=== PATIENT | male | born 1970 | race Caucasian/White ===

== ENCOUNTER 2017-11-24 09:03 | Emergency (ER) | payer OTHER ==
[2017-11-24] MEDS: PERCOCET 5MG/325MG TAB PO (10:15)
[2017-11-24] MEDS: BACLOFEN 10 MG TAB PO (10:15)
== END 2017-11-24 13:17 | disposition home or self-care (01) ==
LOC: M ED 09:03
DX: M51.27 Other intervertebral disc displacement, lumbosacral region (principal); M48.061 Spinal stenosis, lumbar region without neurogenic claudication; K21.9 Gastro-esophageal reflux disease without esophagitis; Z98.890 Other specified postprocedural states
CPT/HCPCS: 72128

== ENCOUNTER 2018-03-22 07:16 | Emergency (ER) | payer OTHER ==
[2018-03-22] MEDS: IBUPROFEN 800 MG TAB PO (09:06)
== END 2018-03-22 09:10 | disposition home or self-care (01) ==
LOC: M ED 07:16
DX: M71.22 Synovial cyst of popliteal space [Baker], left knee (principal)
CPT/HCPCS: 73564

== ENCOUNTER 2018-07-21 11:18 | Emergency (ER) | payer OTHER ==
[~2018-07-21] VITALS: Ht 170.2 cm; Wt 127.3 kg
[~2018-07-21 11:18] MED LIST: BACL10TA2 PO; BACL1TAB8 GT; CIPR500T19 OR; FLAG500T OR; IBUP80TA PO; NORCOTAB PO; No Historical Meds; PERC5TAB12 PO; PRED20TA PO; VICO5TAB OR
[2018-07-21] MEDS ORDERED: RABIES VACCINE HUMAN 2.5 INTERNATIONAL UNITS/ML VIAL (90675) IM ONE (12:15)
[2018-07-21] MEDS ORDERED: KETOROLAC TROMETHAMINE 10 MG TAB PO ONE (12:15)
[2018-07-21] MEDS ORDERED: ADACEL/BOOSTRIX VACCINE (DIPHTH/PERTUSS/ACELL/TETANUS)0.5ML SYR (90715) IM ONE (12:15)
[2018-07-21] MEDS ORDERED: AUGMENTIN 875 MG TAB PO ONE (12:15)
[2018-07-21] MEDS ORDERED: RABIES IMMUNE GLOBULIN 1500 INTERNATIONAL UNITS/10 ML VIAL (90375) IM ONE (12:15)
[2018-07-21] MEDS ORDERED: AUGM875T28 PO (12:28)
[2018-07-21 13:20] VITALS: BP 179/89
== END 2018-07-21 13:30 | disposition home or self-care (01) ==
LOC: M ED 11:18
DX: S51.852A Open bite of left forearm, initial encounter (principal); Y92.89 Other specified places as the place of occurrence of the external cause; W55.01XA Bitten by cat, initial encounter

== ENCOUNTER 2018-07-24 12:40 | Emergency (ER) | payer OTHER ==
[~2018-07-24] VITALS: Ht 170.2 cm; Wt 122.7 kg
[~2018-07-24 12:40] MED LIST changes: +AUGM875T28 PO
[2018-07-24 12:41] VITALS: BP 136/84
[2018-07-24] MEDS ORDERED: RABIES VACCINE HUMAN 2.5 INTERNATIONAL UNITS/ML VIAL (90675) IM ONE (13:15)
== END 2018-07-24 13:42 | disposition home or self-care (01) ==
LOC: M ED 12:40
DX: Z20.3 Contact with and (suspected) exposure to rabies (principal); Z23 Encounter for immunization

== ENCOUNTER 2018-07-28 13:13 | Emergency (ER) | payer OTHER ==
[~2018-07-28] VITALS: Ht 170.2 cm; Wt 122.7 kg
[2018-07-28] MEDS ORDERED: RABIES VACCINE HUMAN 2.5 INTERNATIONAL UNITS/ML VIAL (90675) IM ONE (13:45)
[2018-07-28 14:22] VITALS: BP 146/82
== END 2018-07-28 14:24 | disposition home or self-care (01) ==
LOC: M ED 13:13
DX: Z20.3 Contact with and (suspected) exposure to rabies (principal); Z23 Encounter for immunization

== ENCOUNTER 2018-07-30 16:34 | Emergency (ER) | payer OTHER ==
[~2018-07-30] VITALS: Ht 170.2 cm; Wt 125.0 kg
[2018-07-30] MEDS ORDERED: NORCO, ANEXSIA 5/325MG TABLET (HYDROcodone/ACETAMINOPHEN) PO ONE (18:00)
--- NOTE | 2018-07-30 18:32 | REP ---
Clinical: Cat bite with pain with decreased range of motion and swelling Technique: AP, lateral, bilateral oblique views left wrist. Findings: The osseous structures and joint spaces appear normal. Subcutaneous edema and subtle subcutaneous emphysema cannot be excluded. There is no evidence for acute fracture or dislocation. No foreign body. Impression: No acute fracture or dislocation. Swelling and possible small amounts of subcutaneous emphysema. Electronically Signed by Michael Carney MD 07/30/2018 06:24 P
[2018-07-30] MEDS ORDERED: AUGM875T28 PO (19:28)
[2018-07-30 19:37] VITALS: BP 160/94
[2018-07-30] MEDS ORDERED: NEOSPORIN OINT 0.9 GM PKT (FLOOR STOCK) As Ordered ONE (19:41)
== END 2018-07-30 19:50 | disposition home or self-care (01) ==
LOC: M ED 16:34
DX: S50.872A Other superficial bite of left forearm, initial encounter (principal); W55.01XA Bitten by cat, initial encounter; Y92.89 Other specified places as the place of occurrence of the external cause; Y99.0 Civilian activity done for income or pay; Z79.2 Long term (current) use of antibiotics

== ENCOUNTER 2018-08-04 16:13 | Emergency (ER) | payer OTHER ==
[~2018-08-04] VITALS: Ht 170.2 cm; Wt 122.7 kg
[2018-08-04 16:14] VITALS: BP 165/93
[2018-08-04] MEDS ORDERED: RABIES VACCINE HUMAN 2.5 INTERNATIONAL UNITS/ML VIAL (90675) IM ONE (17:15)
== END 2018-08-04 17:57 | disposition home or self-care (01) ==
LOC: M ED 16:13
DX: Z29.14 Encounter for prophylactic rabies immune globulin (principal)

== ENCOUNTER → 2020-07-26 | Outpatient (CLI) | payer OTHER ==
[~2020-07-26] MED LIST changes: +HYDR-3715 PO; -NORCOTAB PO
[2020-07-26 16:37] LABS: BLOOD UREA NITROGEN 10 MG/DL (7-18); CALCIUM LEVEL 8.9 MG/DL (8.5-10.1); CARBON DIOXIDE LEVEL 32 MEQ/L (21-32); CHLORIDE LEVEL 107 MEQ/L (98-107); CREATININE FOR GFR 1.03 MG/DL (0.70-1.30); GLOMERULAR FILTRATION RATE > 60.0 (>56); GLUCOSE, FASTING 74 MG/DL (70-100); POTASSIUM SERUM 4.2 MEQ/L (3.5-5.1); SODIUM LEVEL 141 MEQ/L (136-145)
== END ==
LOC: M WUC 11:42
PROVIDERS: ATTEND Physician Assistant
DX: I10 Essential (primary) hypertension (principal)

== ENCOUNTER 2020-08-29 08:47 | Emergency (ER) | payer OTHER ==
[~2020-08-29] VITALS: Ht 170.2 cm; Wt 134.1 kg
[2020-08-29] MEDS ORDERED: MORPHINE 4 MG/ML 1ML VIAL/SYRINGE (J2270) IV PRN (09:00)
[2020-08-29] MEDS ORDERED: ONDANSETRON 4MG/2ML VIAL IV ONE (09:00)
[2020-08-29] MEDS ORDERED: LISI10TA15 PO (09:09)
--- NOTE | 2020-08-29 10:01 | REP ---
INDICATION: trauma COMPARISON: None. TECHNIQUE: Axial noncontrast images from the skull base to the vertex with coronal reformations. This CT examination was performed using the following dose reduction techniques: Automated exposure control, adjustment of mA and/or kv according to the patient's size, and use of iterative reconstruction technique. FINDINGS: The ventricles, sulci, and cisterns are normal in position and appearance. Carrasco-white differentiation is maintained. No acute intracranial hemorrhage, mass/mass effect, pathology or trauma/injury. No evidence for acute infarction. No extra-axial fluid collection. Calvarium is intact. Partial opacification of the sinuses likely representing sinusitis and less likely occult facial injury. IMPRESSION: Normal noncontrast head CT. No evidence for acute intracranial pathology or trauma/injury. <Electronically signed by Michael Carney > 08/29/20 [id number]
--- NOTE | 2020-08-29 10:03 | REP ---
INDICATION: trauma COMPARISON: None. TECHNIQUE: Axial noncontrast images from the skull base to the thoracic inlet with coronal and sagittal re-formations This CT examination was performed using the following dose reduction techniques: Automated exposure control, adjustment of mA and/or kv according to the patient's size, and use of iterative reconstruction technique. FINDINGS: Straightening of normal lordosis is nonspecific. Moderate/early advanced multilevel degenerative changes include endplate sclerosis, osteophytosis, and disc space narrowing. There is no evidence for acute fracture/compression injury or subluxation. Spinal canal appears patent. Posterior elements and spinous processes are intact. Paravertebral soft tissues are normal. IMPRESSION: Moderate/early advanced multilevel degenerative spondylosis. No evidence for acute fracture/compression injury or subluxation. <Electronically signed by Michael Carney > 08/29/20 [id number]
--- NOTE | 2020-08-29 10:08 | REP ---
INDICATION: trauma COMPARISON: None. TECHNIQUE: AP, lateral, bilateral oblique views of the left elbow. FINDINGS: No acute fracture or dislocation is appreciated. Joint spaces and surrounding soft tissues appear normal. Lateral view demonstrates normal positioning to the anterior and posterior fat pads without evidence for effusion/hemarthrosis. No subcutaneous emphysema or foreign body identified. IMPRESSION: No acute fracture or dislocation. <Electronically signed by Michael Carney > 08/29/20 [id number]
--- NOTE | 2020-08-29 10:09 | REP ---
INDICATION: trauma COMPARISON: None. TECHNIQUE: Internal rotation, external rotation, and Y view. FINDINGS: Generalized age-related changes are appreciated. There is no evidence for acute fracture or dislocation. Acromioclavicular and glenohumeral joints are intact. Subacromial space is normal. Surrounding soft tissues are unremarkable. IMPRESSION: Generalized age-related changes. No acute fracture or dislocation. <Electronically signed by Michael Carney > 08/29/20 [id number]
[2020-08-29 11:15] VITALS: BP 109/69
== END 2020-08-29 11:40 | disposition home or self-care (01) ==
LOC: EDBD 08:47 → M ED 08:47
DX: S09.90XA Unspecified injury of head, initial encounter (principal); S16.1XXA Strain of muscle, fascia and tendon at neck level, initial encounter; S40.012A Contusion of left shoulder, initial encounter; W00.9XXA Unspecified fall due to ice and snow, initial encounter; Y92.89 Other specified places as the place of occurrence of the external cause; Y93.9 Activity, unspecified; Y99.0 Civilian activity done for income or pay; M47.812 Spondylosis without myelopathy or radiculopathy, cervical region
CPT/HCPCS: 70450; 72125; 73030; 73080; 96374; 96375; 99284; J2270; J2405

== ENCOUNTER 2020-09-04 12:15 | Emergency (ER) | payer OTHER ==
[~2020-09-04] VITALS: Ht 170.2 cm; Wt 132.5 kg
[~2020-09-04 12:15] MED LIST changes: +LISI10TA15 PO
--- NOTE | 2020-09-04 12:50 | REP ---
INDICATION: CHEST PAIN COMPARISON: 06/14/2016 TECHNIQUE: Portable AP view of the chest FINDINGS: The mediastinum and cardiac silhouette are stable and within normal limits for portable technique. The lung blue are clear without acute consolidation, effusion, or pneumothorax. Skeletal structures are intact. IMPRESSION: No acute cardiopulmonary process appreciated. <Electronically signed by Michael Carney > 09/04/20 [id number]
[2020-09-04 12:53] LABS: BASO # 0.1 10^3/uL (0.0-0.2); BASO % 0.8 % (0.0-1.0); EOS # 0.2 10^3/uL (0.0-0.5); HEMATOCRIT 45.7 % (42.0-52.0); HEMOGLOBIN 15.4 g/dl (13.5-17.5); LYMPH # 3.3 10^3/uL (1.5-5.0); MEAN CORPUSCULAR HEMOGLOBIN 30.1 pg (27.0-33.0); MEAN CORPUSCULAR HGB CONC 33.7 g/dl (32.0-36.5); MEAN CORPUSCULAR VOLUME 89.3 fl (80.0-96.0); MONO # 1.1 10^3/uL (0.0-0.8); MONO % 8.8 % (2.0-8.0); NEUTROPHILS # 7.4 10^3/uL (1.5-8.5); NEUTROPHILS % 60.7 % (36.0-66.0); PLATELET COUNT, AUTOMATED 355 10^3/uL (150-450); RED BLOOD COUNT 5.12 10^6/uL (4.30-6.10); WHITE BLOOD COUNT 12.2 10^3/uL (4.0-10.0)
[2020-09-04 13:22] LABS: BLOOD UREA NITROGEN 10 MG/DL (7-18); CREATININE FOR GFR 1.05 MG/DL (0.70-1.30); GLUCOSE, FASTING 75 MG/DL (70-100)
[2020-09-04 13:23] LABS: ALBUMIN 3.7 GM/DL (3.2-5.2); ALT/SGPT 42 U/L (12-78); BILIRUBIN,DIRECT 0.2 MG/DL (0.0-0.2); BILIRUBIN,TOTAL 0.4 MG/DL (0.2-1.0); CALCIUM LEVEL 8.7 MG/DL (8.5-10.1); CARBON DIOXIDE LEVEL 28 MEQ/L (21-32); CHLORIDE LEVEL 105 MEQ/L (98-107); CK-MB VALUE MASS 1.1 NG/ML (<3.6); CPK CREATINE PHOSPHOKINASE 211 U/L (39-308); GLOMERULAR FILTRATION RATE > 60.0 (>56); MB/CK RELATIVE INDEX 0.52 (< OR =4); POTASSIUM SERUM 3.6 MEQ/L (3.5-5.1); SODIUM LEVEL 138 MEQ/L (136-145); TOTAL PROTEIN 7.1 GM/DL (6.4-8.2); TROPONIN I < 0.02 NG/ML (< 0.10)
[2020-09-04] MEDS ORDERED: ISOVUE-370 76% 100ML VIAL As Ordered ONE (13:42)
--- NOTE | 2020-09-04 14:20 | REP ---
INDICATION: left chest pain. COMPARISON: None. TECHNIQUE: CT chest performed following the intravenous administration of 100 cc of Isovue 370. Sagittal and coronal reconstruction images are performed. FINDINGS: Lungs: There is no acute infiltrate. There is focal thickening along the major fissure on the left on image 54 which has a slightly nodular appearance, but this appears benign. Mediastinum: No adenopathy. Marcia: No adenopathy. Axilla: No adenopathy. Pleura: No effusion. Heart: Not enlarged. Thoracic aorta: No aneurysm or dissection. Upper abdominal structures: There is diffuse fatty infiltration of the liver. There has been a prior cholecystectomy. Visualized osseous structures: There are degenerative changes of the spine without compression deformity. IMPRESSION: No acute abnormalities identified, unremarkable CT chest. <Electronically signed by Juan Ramon Carrasco > 09/04/20 [id number]
[2020-09-04 14:30] VITALS: BP 156/80
[2020-09-04] MEDS ORDERED: IBUP-1022 PO (14:39)
--- NOTE | 2020-09-05 00:25 | ECGEPIP ---
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
== END 2020-09-04 14:44 | disposition home or self-care (01) ==
LOC: M ED 12:15
DX: M94.0 Chondrocostal junction syndrome [Tietze] (principal); I51.9 Heart disease, unspecified; I10 Essential (primary) hypertension; E78.5 Hyperlipidemia, unspecified; K21.9 Gastro-esophageal reflux disease without esophagitis
CPT/HCPCS: 71045; 71260; 80048; 80076; 82550; 82553; 84484; 85025; 93005; 93041; 94760; 99285; Q9967

== ENCOUNTER 2023-01-08 22:38 | Emergency (ER) | payer OTHER ==
[~2023-01-08] VITALS: Ht 170.2 cm; Wt 135.0 kg
[~2023-01-08 22:38] MED LIST changes: +IBUP-1022 PO; -LISI10TA15 PO; +LISI10TA24 PO
[2023-01-09] MEDS ORDERED: LIDO5DIS41 TD (03:45)
[2023-01-09] MEDS ORDERED: MEDR4PAK PO (03:45)
[2023-01-09] MEDS ORDERED: predniSONE 20 MG TAB PO ONE (03:45)
[2023-01-09] MEDS ORDERED: LIDOCAINE 5% (LIDODERM) PATCH TD ONE (03:45)
[2023-01-09] MEDS ORDERED: VALI5TAB PO (03:46)
[2023-01-09] MEDS ORDERED: KETOROLAC 30 MG/ML 1ML VIAL IV ONE (04:00)
[2023-01-09 06:09] VITALS: BP 132/74; TEMP 98; O2SAT 98
== END 2023-01-09 06:13 | disposition home or self-care (01) ==
LOC: M ED 22:38
DX: S39.012A Strain of muscle, fascia and tendon of lower back, initial encounter (principal); X50.0XXA Overexertion from strenuous movement or load, initial encounter; I10 Essential (primary) hypertension; M51.36 Other intervertebral disc degeneration, lumbar region; Z79.899 Other long term (current) drug therapy
CPT/HCPCS: 72110; 96374; 99283; J1885; J7512

== ENCOUNTER 2024-08-31 05:31 | Emergency (ER) | payer OTHER ==
[~2024-08-31] VITALS: Ht 170.2 cm; Wt 136.2 kg
[~2024-08-31 05:31] MED LIST changes: +LIDO5DIS41 TD; +MEDR4PAK PO; +VALI5TAB PO
[2024-08-31] MEDS: NITROGLYCERIN 0.4MG SUBL TABLET SL PRN (06:16)
[2024-08-31] MEDS: ONDANSETRON 4MG 2ML VIAL IV ONE (06:16)
[2024-08-31 06:23] VITALS: BP 143/85
[2024-08-31 06:36] LABS: BASO # 0.1 10^3/uL (0.0-0.2); EOS # 0.2 10^3/uL (0.0-0.5); EOS % 2.7 % (0.0-3.0); HEMATOCRIT 47.7 % (42.0-52.0); HEMOGLOBIN 16.1 g/dl (13.5-17.5); LYMPH % 25.1 % (24.0-44.0); MEAN CORPUSCULAR HEMOGLOBIN 29.9 pg (27.0-33.0); MEAN CORPUSCULAR HGB CONC 33.8 g/dl (32.0-36.5); MEAN CORPUSCULAR VOLUME 88.5 fl (80.0-96.0); MONO # 0.8 10^3/uL (0.0-0.8); MONO % 10.1 % (2.0-8.0); NEUTROPHILS # 4.8 10^3/uL (1.5-8.5); NEUTROPHILS % 60.6 % (36.0-66.0); PLATELET COUNT, AUTOMATED 328 10^3/uL (150-450); RED BLOOD COUNT 5.39 10^6/uL (4.30-6.10); WHITE BLOOD COUNT 7.9 10^3/uL (4.0-10.0)
[2024-08-31 07:03] LABS: BLOOD UREA NITROGEN 11 MG/DL (9-23); CALCIUM LEVEL 8.7 MG/DL (8.5-10.1); CARBON DIOXIDE LEVEL 24 MMOL/L (20-31); CHLORIDE LEVEL 108 MMOL/L (98-107); CK-MB VALUE MASS 1.1 NG/ML (<3.6); CPK CREATINE PHOSPHOKINASE 176 U/L (46-171); CREATININE FOR GFR 0.81 MG/DL (0.70-1.30); GLOMERULAR FILTRATION RATE > 60.0 (>56); GLUCOSE, FASTING 133 MG/DL (60-100); MB/CK RELATIVE INDEX 0.62 (< OR =4); POTASSIUM SERUM 4.2 MMOL/L (3.5-5.1); SODIUM LEVEL 142 MMOL/L (136-145)
[2024-08-31] MEDS ORDERED: ISOVUE-370 76% 100ML VIAL As Ordered ONE (07:09)
[2024-08-31] MEDS: MORPHINE 4 MG/ML 1ML VIAL IV PRN (08:01)
[2024-08-31 08:07] LABS: CK-MB VALUE MASS < 1.0 NG/ML (<3.6)
[2024-08-31 08:08] LABS: CPK CREATINE PHOSPHOKINASE 176 U/L (46-171); MB/CK RELATIVE INDEX 0.56 (< OR =4)
[2024-08-31] MEDS ORDERED: HYDR-3713 PO (08:15)
[2024-08-31] MEDS ORDERED: IBUP-1022 PO (08:15)
[2024-08-31] MEDS: KETOROLAC 30 MG/ML 1ML VIAL IV ONE (08:30)
[2024-08-31 09:48] VITALS: BP 107/55; TEMP 97; O2SAT 95
== END 2024-08-31 09:52 | disposition home or self-care (01) ==
LOC: M ED 05:31
DX: S22.32XA Fracture of one rib, left side, initial encounter for closed fracture (principal); X58.XXXA Exposure to other specified factors, initial encounter; K76.0 Fatty (change of) liver, not elsewhere classified; I10 Essential (primary) hypertension; K21.9 Gastro-esophageal reflux disease without esophagitis; E66.9 Obesity, unspecified; F10.10 Alcohol abuse, uncomplicated; Y92.9 Unspecified place or not applicable; Y93.9 Activity, unspecified; Y99.9 Unspecified external cause status; Z79.1 Long term (current) use of non-steroidal anti-inflammatories (NSAID); Z79.899 Other long term (current) drug therapy; Z90.49 Acquired absence of other specified parts of digestive tract
CPT/HCPCS: 71045; 71275; 74177; 80047; 80048; 82550; 82553; 84484; 85025; 85730; 93005; 93041; 94010; 94760; 96374; 96375; 99285; J1885; J2405; Q9967